=== PATIENT | male | born 1965 | race Caucasian/White ===

== ENCOUNTER 2018-11-21 15:01 | Observation (INO) ==
--- OUTSIDE RECORDS SUMMARY | 2018-11-21 15:04 | External Medical Summary | Continuity of Care Document ---
:1965 Author Name Ezequiel Romero, Provider Address Unavailable Unavailable , Care Team Providers Name Role Phone Unavailable Unavailable Unavailable PCP, UNKNOWN Unavailable Unavailable Problems Nephrolithiasis (592.0) (N20.0) Allergies and Adverse Reactions Nayeli PACE (Allergy) Medications No Reported Medications , M.D. Refills: 0 Procedures History of Lithotripsy - Whole Body (Extracorporeal Shock Wa ve) Status: Completed Immunizations Immunizations not documented Social History - Smoking Status Current every day smoker Plan of Treatment Planned Observations Planned Goals not documented Results No Known Results Results not documented
[2018-11-21] MEDS ORDERED: ASPIRIN CHEW 324 MG PO STA (15:15)
[2018-11-21] MEDS ORDERED: NITROGLYCERIN SL 0.4 MG/TAB TAB SL PRN ×2 (15:15→19:35)
--- NOTE | 2018-11-21 15:37 | XRay Report ---
SINGLE VIEW CHEST CLINICAL HISTORY: Atypical chest pain. FINDINGS: 2 AP, portable, upright chest radiographs are compared to study dated 06/29/2010. The cardio mediastinal silhouette is unremarkable. The lungs and pleural spaces are clear. No pneumothorax is se en. The bony thorax is grossly intact. IMPRESSION: No active disease in the chest. Electronically signed by: Monty Marks M.D. 11/21/2018 3:36 PM
[2018-11-21 15:46] LABS: Basophils # (auto) 0.03 K/uL (0-0.2); Basophils % (auto) 0.4 %; Eosinophils % (auto) 2.4 %; Hemoglobin 15.7 g/dL (14.0-18.0); Immature Granulocytes # (auto) 0.01 K/uL (0.00-0.02); Immature Granulocytes % (auto) 0.1 %; Lymphocytes # (auto) 3.57 K/uL (1.2-3.4); Lymphocytes % (auto) 43.2 %; Mean Corpuscular Hgb Conc 34.9 g/dL (32-36); Mean Corpuscular Volume 87.9 fL (80-100); Mean Platelet Volume 10.2 fL (7.4-10.4); Monocytes # (auto) 0.48 K/uL (0.11-0.59); Monocytes % (auto) 5.8 %; Neutrophils # (auto) 3.97 K/uL (1.4-6.5); Neutrophils % (auto) 48.1 %; Platelet Count 253 K/uL (130-400); RDW Coefficient of Variation 13.4 % (11.5-14.5); RDW Standard Deviation 43.3 fL (36.4-46.3); Red Blood Count 5.12 M/uL (4.7-6.1); White Blood Count 8.26 K/uL (4.8-10.8)
[2018-11-21 15:58] LABS: BUN Creatinine Ratio 10.5 (10-20); Blood Urea Nitrogen 8 mg/dl (7-18); Calcium 8.5 mg/dl (8.5-10.1); Carbon Dioxide 24 mmol/L (21-32); Chloride 109 mmol/L (98-107); Est GFR (Non-African American) 102.7; Glucose 102 mg/dl (70-99); Sodium 140 mmol/L (136-145)
[2018-11-21 16:00] LABS: Partial Thromboplastin Ratio 1.1; Partial Thromboplastin Time 30.8 Seconds (21.0-31.0); Prothrombin Time 10.2 Seconds (9.0-12.0)
[2018-11-21 16:02] LABS: Troponin I < 0.015 ng/ml (0-0.045)
--- NOTE | 2018-11-21 17:22 | History & Physical Report ---
Date of Service November 21, 2018 Assessment & Plan (1) Chest pain: (2) Abnormal ECG: This is a 53-year-old male who has significant past medical history of depression, tobacco abuse, HLD, hypertriglyceridemia, history of kidney stone who presents to [facility] ED secondary to chest pain that started 30 minutes prior to arrival. In ED upon arrival ECG was obtained which revealed ST and T wave depressions in leads V2 through V4 but troponin unremarkable He received 325 ASA along nitroglycerin and symptoms have subsided Remains hemodynamically stable CBC, BMP, chest x-ray unremarkable risk factors include HLD, High triglycerides, tobacco use, significant caffeine use No family hx of premature cardiac . Grandfather with CABG x 3 in 70s Sx and ecg changes concerning for underlying cardiac disease admit to telemetry cycle troponin, if elevates will place on heparin repeat ecg obtain echocardiogram consult cardiology lipid panel, A1C in a.m. ASA 81mg daily (3) Hypertriglyceridemia: Per [facility] previous Lipid panel reveals elevated Total cholesterol, triglyceride not treated medically (4) HLD (hyperlipidemia): Per [facility] previous Lipid panel reveals elevated Total cholesterol, triglyceride not treated medically (5) Tobacco abuse: NicoDerm patch requested smoking cessation encouraged (6) DVT prophylaxis: SCD/TEDS Disposition: admit to telemetry Follow up: PCP Dr. Escobedo upon discharge Patient was seen and examined in collaboration with Dr. Dahl, please see ad dendum Starting 11/22/18 patient will be followed by Dr. Person History of Present Illness Chief Complaint: Chest pain x 30 min [employer] Primary Care Provider: Francis Escobedo MD This is a 53-year-old male who has significant past medical history of depression, tobacco abuse, HLD, hypertriglyceridemia, history of kidney stone who presents to [facility] ED secondary to chest pain that started 30 minutes prior to arrival. Patient was driving when he developed substernal chest pain that felt like, "being stuck with a knife," "could not get deep breath," rated 10/10, radiating to the left side of chest with associated diaphoresis, shortness of breath and dizziness. Symptoms lasted approximately 20 minutes before easing. He has had similar symptoms in the past 1 month, approximately 3-4 times. The symptoms were similar to today but less severe. Previous episode also occurred with exertion when patient was working on remodeling a house. Symptoms resolved with rest. Denies any recent illness. Complains of ORTEGA x past month but attributed that to his smoking. Denies f/c/s, syncope, lightheaded, palpitations, sob at rest, cough, hemopytsis, cough, n/v/d, change in bowel or urinary habits. Appetite has otherwise been okay. He is a smoker. Has hx of high cholesterol but never treated medically. Drinks 6- 9cups of caffeinated beverages daily. Allergies Allergy/AdvReac Type Severity Reaction Status Date / Time minoxidil Allergy Severe Anaphylaxis Verified 11/21/18 16:14 bee venom protein (honey bee) Allergy Mild mild Unverified 11/21/18 16:45 guaifenesin Allergy Verified 11/21/18 16:14 Home Medications Home Medications Medication Instructions Recorded Confirmed Type citalopram 10 mg PO QAM 04/02/18 11/21/18 History Past Med/Surg History Medical History HLD (hyperlipidemia) Hypertriglyceridemia Tobacco abuse Kidney stones Surgical History History of colonoscopy History of lithotripsy Family History Father ESRD (end stage renal disease) Hepatitis B Grandfather (Paternal) Coronary heart disease, Onset Age: 70 CABG x 3 Social History Communication Ability: Effective Visual Impairment: No Limitations Hearing Ability: Normal marital status: Current Living Situation: Family current occupational status: employed Feels Safe at Home: Yes Smoking Status: Current every day smoker Years Smoked: 25 ; Cigarettes Per Day: 10-15 ; Hx Alcohol Use: Yes Alcohol Intake Frequency: Rarely Hx Substance Use: No Review of Systems Review of Systems: All systems reviewed & are unremarkable except as noted in HPI & below Physical Exam Physical Exam: Constitutional: WD/WN, vitals as above, NAD, sitting up in bed, pleasant, conversing easily Head: Normocephalic, Atraumatic Eyes: PERRL, conjunctivae normal, anicteric sclerae ENMT: external ear and nose normal, oropharynx normal Neck: trachea midline, no thyromegaly normal visual inspection Respiratory: normal respiratory effort, lungs clear to auscultation, no wheeze, rales, rhonchi. Normal insp/exp effort, no accessory muscle use Cardiovascular: RRR, no murmur, no edema Vessels: no JVD or carotid bruit Chest: normal inspection of chest Abdomen: normal bowel sounds, soft, nontender, no hepatosplenomegaly Musculoskeletal: no cyanosis or clubbing, extremities motor strength 5/5 Skin: no rashes, warm and dry normal turgor Neurologic: PERRL, EOMI, accommodation nl, no face palsy, no dysarthria CN's II-XI intact bilaterally and moves all extremities Psychiatric: A+Ox3, euthymic affect Lymphatic: no cervical or axillary lymphadenopathy : deferred Results & Data Vital Signs (Past 12 Hours) Vital Signs Temp Pulse Resp BP Pulse Ox 11/21/18 16:44 66 14 119/91 97 11/21/18 16:43 61 10 L 141/95 H 96 11/21/18 16:30 64 20 134/89 96 11/21/18 16:00 65 16 137/97 94 11/21/18 15:58 70 18 140/100 95 11/21/18 15:26 79 16 98 11/21/18 15:03 37.1 C 79 16 143/88 H 98 Laboratory Results Short CBC 11/21/18 Range/Units 15:25 WBC 8.26 (4.8-10.8) K/uL Hgb 15.7 (14.0-18.0) g/dL Hct 45.0 (42-52) % Plt Count 253 (130-400) K/uL BMP 11/21/18 15:25 Sodium 140 Potassium 4.0 Chloride 109 H Carbon Dioxide 24 BUN 8 Creatinine 0.80 Glucose 102 H Calcium 8.5 Cardiac Enzymes 11/21/18 Range/Units 15:25 Troponin I < 0.015 (0-0.045) ng/ml Diagnostic Findings CXR: IMPRESSION: No active disease in the chest. Medications Administered Nitroglycerin (Nitrostat) 0.4 mg SL UD PRN PRN Reason: Chest Pain Stop: 12/21/18 15:14 Last Admin: 11/21/18 16:02 Dose: 0.4 mg Documented by: [id number] Discontinued Medications Aspirin (Aspirin) 324 mg PO NOW STA Stop: 11/21/18 15:16 Last Admin: 11/21/18 16:02 Dose: 324 mg Documented by: [id number] ECG Rate (beats per minute): 70 Rhythm: normal sinus Findings: + ST depression (anterior) and + T-wave inversion (anterior) Code Status & VTE Plan Code Status Full Code VTE Prophylaxis Plan VTE Prophylaxis will be ordered: Yes Supervising Physician Co-Signing Physician Notes I, Dr. 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 Patient evaluated in the ED so far and no current chest pain. His initial troponin is negative but patient does have ABNORMAL EKG as the appears to be T wave changes in anterior leads of V3 and V4 compared to EKG results in 2000. Patient denies of a diagnosed cardiac history in the past. Has been breathing on room air in the emergency room. No abdominal pain. No vomiting. No problems with bowel movements and urination. While in the emergency room, no headache, no dizziness, no lightheadedness. main plans to evaluate chest pain is to trend troponins, monitor on telemetry, and obtain echocardiogram. also check HbA1c and lipid panel. If any significant changes in diagnostic findings or changes in clinical status then may need cardiology evaluation. Patient's [phone] Person will be follow the patient starting on 11/22/18 (1) Chest pain Chest pain type: unspecified Qualified Code(s): R07.9 - Chest pain, unspecified
--- NOTE | 2018-11-21 18:31 | Emergency Department Note ---
Entered by Daphney Aldrich acting as a scribe for Chandler Ayala History of Present Illness General Chief complaint: Cardiac Assessment Stated complaint: CHEST PAIN, SOB, SWEATING Time Seen by Provider: 11/21/18 15:09 Source: patient and family Mode of arrival: ambulatory Limitations: no limitations History of Present Illness Onset (ago): minute(s) 30 Location: chest Radiation: non-radiation Pain Consistency: + now resolved Maximum Pain Intensity: 0 Current Pain Intensity: 10 Quality: + sharp Relieved By: + none Exacerbated By: + none Associated symptoms: + shortness of breath Treatments prior to arrival: none The patient is a 53 year old male who presents to the ED with complaints of chest pain. He states he was driving about 30 minutes [employer] when he experienced sharp chest pain and shortness of breath. He rates his pain as a 10/10 in severity but notes it has resolved and he rates it as a 1/10 currently in the ED. He denies any recent long trips or travel. He denies any recent cough. His notes he slid down a ladder last week and has not felt "normal" since then. He did not hit his head or lose consciousness after the fall. His grandfather did have a heart attack in his early 70's. Home Medications Home Medications Medication Instructions Recorded Confirmed Type citalopram 10 mg PO QAM 04/02/18 11/21/18 History Allergies Allergy/AdvReac Type Severity Reaction Status Date / Time minoxidil Allergy Severe Anaphylaxis Verified 11/21/18 16:14 bee venom protein (honey bee) Allergy Mild mild Unverified 11/21/18 16:45 guaifenesin Allergy Verified 11/21/18 16:14 Past Med/Surg History Medical History HLD (hyperlipidemia) Hypertriglyceridemia Tobacco abuse Kidney stones Surgical History History of colonoscopy History of lithotripsy Family History Father ESRD (end stage renal disease) Hepatitis B Grandfather (Paternal) Coronary heart disease, Onset Age: 70 CABG x 3 Social History Communication Ability: Effective Visual Impairment: No Limitations Hearing Ability: Normal marital status: Current Living Situation: Family current occupational status: employed Feels Safe at Home: Yes Smoking Status: Current every day smoker Years Smoked: 25 ; Cigarettes Per Day: 10-15 ; Hx Alcohol Use: Yes Alcohol Intake Frequency: Rarely Hx Substance Use: No Review of Systems See HPI for pertinent positives & negatives. and A total of 10 systems reviewed and were otherwise negative Physical Exam Vital Signs Vital Signs - 24 hr 11/21/18 15:03 11/21/18 15:26 11/21/18 15:58 Temperature 37.1 C Temperature Source Oral Sepsis Recent Fever Within 48 Hours No Sepsis New/Unexplained Change in Mental Status No Sepsis Action Taken by Nursing No Action Required Pulse Rate 79 79 70 Pulse Rate from SpO2 Sensor 68 Pulse Rhythm Regular Respiratory Rate 16 16 18 Blood Pressure 143/88 H 140/100 Blood Pressure Mean 106 113 Pulse Oximetry 98 98 95 Oxygen Delivery Method Room Air Room Air Room Air 11/21/18 16:00 11/21/18 16:30 11/21/18 16:43 Temperature Temperature Source Sepsis Recent Fever Within 48 Hours Sepsis New/Unexplained Change in Mental Status Sepsis Action Taken by Nursing Pulse Rate 65 64 61 Pulse Rate from SpO2 Sensor 64 58 L Pulse Rhythm Respiratory Rate 16 20 10 L Blood Pressure 137/97 134/89 141/95 H Blood Pressure Mean 110 104 110 Pulse Oximetry 94 96 96 Oxygen Delivery Method Room Air Room Air Room Air 11/21/18 16:44 Temperature Temperature Source Sepsis Recent Fever Within 48 Hours Sepsis New/Unexplained Change in Mental Status Sepsis Action Taken by Nursing Pulse Rate 66 Pulse Rate from SpO2 Sensor 62 Pulse Rhythm Respiratory Rate 14 Blood Pressure 119/91 Blood Pressure Mean 100 Pulse Oximetry 97 Oxygen Delivery Method Room Air GENERAL: He is oriented to person, place, and time. He appears well-developed and well-nourished. He does not appear distressed. HENT: Exam performed. - Head: Normocephalic and atraumatic. - Right Ear: External ear normal. No mastoid tenderness. - Left Ear: External ear normal. No mastoid tenderness. - Mouth/Throat: The oropharynx is clear and moist. No trismus in the jaw. No dental abscesses or uvula swelling. No oropharyngeal exudate or tonsillar abscesses. EYES: Conjunctivae and EOM are normal. Pupils are equal, round, and reactive to light. Right eye exhibits no discharge. Left eye exhibits no discharge. No scleral icterus. NECK: Normal range of motion. Neck supple. No JVD present. No spinous process tenderness present. No carotid bruit present. No rigidity. No tracheal deviation and normal range of motion present. No Brudzinski's sign and no Kernig's sign noted. CV: Normal rate, regular rhythm, normal heart sounds and intact distal pulses. There is no peripheral edema. Palpable radial pulses bue. PULM/CHEST: Effort normal and breath sounds normal. No respiratory distress. No stridor. He has no wheezes. He has no rales. - Chest Wall: He exhibits no tenderness. ABD: The abdomen is soft. Bowel sounds are normal. He has no distension. No mass is present. There is no tenderness. There is no rebound, no guarding, no Stewart's sign and no tenderness at McBurney's point. Rovsig negative. MUSC/SKEL: Normal range of motion. There is no peripheral edema, tenderness or deformity. LYMPH: No cervical adenopathy. NEURO: He is alert and oriented to person, place, and time. He has normal strength. No cranial nerve deficit or sensory deficit. Coordination and gait normal. GCS eye subscore is 4. GCS verbal subscore is 5. GCS motor subscore is 6. Cerebellar tests wnl. SKIN: Skin is warm and dry. He is not diaphoretic. PSYCH: He has a normal mood and affect. Behavior is normal. Judgment and thought content normal. Course 1510: The patient was evaluated in room B2 and a complete history and physical were performed. 1610: Vital signs stable. Labs and imaging within normal limits. EKG does show TWI. Given his age, tobacco use history and history of hyperlipidemia, he will be a chest pain/ACS rule out. Patient is in agreement with this plan. I discussed the patients case with Jeannie Camarena. The patient will be further evaluated. Consultations Consultation #1: I discussed the patients case with Jeannie Camarena. The patient will be further evaluated. Time: 16:11 Administered Medications Nitroglycerin (Nitrostat) 0.4 mg SL UD PRN PRN Reason: Chest Pain Stop: 12/21/18 15:14 Last Admin: 11/21/18 16:02 Dose: 0.4 mg Documented by: [id number] Discontinued Medications Aspirin (Aspirin) 324 mg PO NOW STA Stop: 11/21/18 15:16 Last Admin: 11/21/18 16:02 Dose: 324 mg Documented by: [id number] Medical Decision Making Medical Records Attestation: I reviewed the patient's medical records. Home Medications Current Medication List: was personally reviewed by me Laboratory Data Attestation: I reviewed the patient's lab results. Result diagrams: 11/21/18 15:25 11/21/18 15:25 Lab Results 11/21/18 11/21/18 11/21/18 Range/Units 15:25 15:25 15:25 WBC 8.26 (4.8-10.8) K/uL RBC 5.12 (4.7-6.1) M/uL Hgb 15.7 (14.0-18.0) g/dL Hct 45.0 (42-52) % MCV 87.9 (80-100) fL MCH 30.7 (25-34) pg MCHC 34.9 (32-36) g/dL RDW Std Deviation 43.3 (36.4-46.3) fL RDW Coeff of Anais 13.4 (11.5-14.5) % Plt Count 253 (130-400) K/uL MPV 10.2 (7.4-10.4) fL Immature Gran % (Auto) 0.1 % Neut % (Auto) 48.1 % Lymph % (Auto) 43.2 % White % (Auto) 5.8 % Eos % (Auto) 2.4 % Baso % (Auto) 0.4 % Immature Gran # (Auto) 0.01 (0.00-0.02) K/uL Neut # (Auto) 3.97 (1.4-6.5) K/uL Lymph # (Auto) 3.57 H (1.2-3.4) K/uL White # (Auto) 0.48 (0.11-0.59) K/uL Eos # (Auto) 0.20 (0-0.5) K/uL Baso # (Auto) 0.03 (0-0.2) K/uL PT 10.2 (9.0-12.0) Seconds INR 1.0 (0.9-1.1) APTT 30.8 (21.0-31.0) Seconds PTT Ratio 1.1 Sodium 140 (136-145) mmol/L Potassium 4.0 (3.5-5.1) mmol/L Chloride 109 H (98-107) mmol/L Carbon Dioxide 24 (21-32) mmol/L Anion Gap 7.0 (3-11) BUN 8 (7-18) mg/dl Creatinine 0.80 (0.6-1.4) mg/dl Est Cr Clr Drug Dosing 110.0 ml/min Est GFR ( Amer) 119.0 Est GFR (Non-Af Amer) 102.7 BUN/Creatinine Ratio 10.5 (10-20) Glucose 102 H (70-99) mg/dl Calcium 8.5 (8.5-10.1) mg/dl POC Troponin I (0-0.045) ng/ml Troponin I < 0.015 (0-0.045) ng/ml Lipase 183 (73-393) U/L 11/21/18 Range/Units 15:34 WBC (4.8-10.8) K/uL RBC (4.7-6.1) M/uL Hgb (14.0-18.0) g/dL Hct (42-52) % MCV (80-100) fL MCH (25-34) pg MCHC (32-36) g/dL RDW Std Deviation (36.4-46.3) fL RDW Coeff of Anais (11.5-14.5) % Plt Count (130-400) K/uL MPV (7.4-10.4) fL Immature Gran % (Auto) % Neut % (Auto) % Lymph % (Auto) % White % (Auto) % Eos % (Auto) % Baso % (Auto) % Immature Gran # (Auto) (0.00-0.02) K/uL Neut # (Auto) (1.4-6.5) K/uL Lymph # (Auto) (1.2-3.4) K/uL White # (Auto) (0.11-0.59) K/uL Eos # (Auto) (0-0.5) K/uL Baso # (Auto) (0-0.2) K/uL PT (9.0-12.0) Seconds INR (0.9-1.1) APTT (21.0-31.0) Seconds PTT Ratio Sodium (136-145) mmol/L Potassium (3.5-5.1) mmol/L Chloride (98-107) mmol/L Carbon Dioxide (21-32) mmol/L Anion Gap (3-11) BUN (7-18) mg/dl Creatinine (0.6-1.4) mg/dl Est Cr Clr Drug Dosing ml/min Est GFR ( Amer) Est GFR (Non-Af Amer) BUN/Creatinine Ratio (10-20) Glucose (70-99) mg/dl Calcium (8.5-10.1) mg/dl POC Troponin I < 0.03 (0-0.045) ng/ml Troponin I (0-0.045) ng/ml Lipase (73-393) U/L Imaging Data Radiologist's Impression: Radiology results as stated below per my review and the radiologist's interpretation: SINGLE VIEW CHEST CLINICAL HISTORY: Atypical chest pain. FINDINGS: 2 AP, portable, upright chest radiographs are compared to study dated 06/29/2010. The cardiomediastinal silhouette is unremarkable. The lungs and pleural spaces are clear. No pneumothorax is seen. The bony thorax is grossly intact. IMPRESSION: No active disease in the chest. Electronically signed by: Monty Marks M.D. 11/21/2018 3:36 PM ECG Data Attestation: I personally reviewed and interpreted this ECG as follows: Indication: chest pain Rate (beats per minute): 70 Rhythm: sinus rhythm Findings: + other (MT, QRS and QTC within normal limits) and + T-wave inversion (in V3 and V4); no ST depression and no ST elevation Additional Comments: 2nd EKG on 11/21/18: Sinus rhythm, rate of 70, MT, QRS and QTC within normal limits, no ST elevations, no ST depressions, T-wave inversions in V3 and V4. Blood Pressure Blood Pressure Findings: Elevated blood pressure Blood Pressure Disposition: further management by hospitalist [facility] Narrative Vital signs stable. Labs and imaging within normal limits. EKG does show TWI. Given his age, tobacco use history and history of hyperlipidemia, he will be a chest pain/ACS rule out. Patient is in agreement with this plan. I discussed the patients case with Dr. Dahl, [facility] Hospitalist. The patient will be further evaluated. Impression & Plan Chest pain Discharge Plan Visit Data Chief Complaint: Cardiac Assessment Stated Complaint: CHEST PAIN, SOB, SWEATING ED Provider: Chandler Ayala Discharge Problem: Chest pain Patient Disposition: Being Evaluated by Hospitalist Forms Stand Alone Forms: My [facility] Prescriptions Prescriptions: No Action citalopram 10 mg tablet 10 mg PO QAM RF: 0 Referrals Referrals: Francis Escobedo MD [Primary Care Provider] - Discharge Problem: Chest pain Qualifiers: Chest pain type: unspecified Qualified Code(s): R07.9 - Chest pain, unspecified The scribe's documentation has been prepared under my direction and personally reviewed by me in its entirety. I confirm that the note above accurately reflects all work, treatment, procedures, and medical decision making performed by me.
[2018-11-21] MEDS ORDERED: ONDANSETRON INJ 2 MG/ML 2 ML VIAL IV PRN (19:35)
[2018-11-21] MEDS ORDERED: ACETAMINOPHEN 325 MG TAB PO PRN (19:35)
[2018-11-21] MEDS ORDERED: POLYETHYLENE (MIRALAX) 17 GM PACK PO PRN (19:35)
[2018-11-21] MEDS: NICOTINE 21 MG/24 HR TDSY TD SCH (21:04)
[2018-11-22 03:30] LABS: Hematocrit (blood only) 44.4 % (42-52); Hemoglobin 15.6 g/dL (14.0-18.0); Mean Corpuscular Hgb Conc 35.1 g/dL (32-36); Mean Corpuscular Volume 88.3 fL (80-100); Mean Platelet Volume 10.2 fL (7.4-10.4); Platelet Count 240 K/uL (130-400); RDW Coefficient of Variation 13.6 % (11.5-14.5); RDW Standard Deviation 44.1 fL (36.4-46.3); Red Blood Count 5.03 M/uL (4.7-6.1); White Blood Count 9.03 K/uL (4.8-10.8)
[2018-11-22 03:48] LABS: Alanine Aminotransferase 20 U/L (12-78); Albumin Level 3.3 gm/dl (3.4-5.0); Aspartate Aminotransferase 13 U/L (15-37); BUN Creatinine Ratio 14.2 (10-20); Blood Urea Nitrogen 10 mg/dl (7-18); Calcium 8.1 mg/dl (8.5-10.1); Carbon Dioxide 25 mmol/L (21-32); Chloride 111 mmol/L (98-107); Creatinine Clr Calc Pharmacy 122.7 ml/min; Est GFR (African American) 125.8; Est GFR (Non-African American) 108.5; Glucose 93 mg/dl (70-99); Potassium 3.9 mmol/L (3.5-5.1); Sodium 141 mmol/L (136-145)
[2018-11-22 03:53] LABS: Albumin Globulin Ratio 1.1 (0.9-2); Alkaline Phosphatase 52 U/L (45-117); Bilirubin,Total 0.2 mg/dl (0.2-1); Chol HDL Ratio 6; Cholesterol 188 mg/dl (0-200); Globulin 2.9 gm/dl (2.5-4.0); HDL Cholesterol 30 mg/dl; LDL Cholesterol Calculated 115 mg/dl; Total Protein 6.2 gm/dl (6.4-8.2); Triglycerides 214 mg/dl (0-150); Troponin I < 0.015 ng/ml (0-0.045); VLDL Cholesterol 43 mg/dl
[2018-11-22 06:18] LABS: Estimated Average Glucose 117 mg/dl; Hemoglobin A1C 5.7 % (4.5-5.6)
[2018-11-22] MEDS: NICOTINE 21 MG/24 HR TDSY TD SCH (08:02)
[2018-11-22] MEDS ORDERED: CITALOPRAM 20 MG TAB PO SCH (09:00)
[2018-11-22] MEDS ORDERED: ASPIRIN 81 MG ECTAB PO SCH (09:00)
--- NOTE | 2018-11-22 14:34 | Hospitalist Progress Note ---
Date of Service November 22, 2018 Assessment & Plan (1) Chest pain: (2) Abnormal ECG: Present on admission with chest pain ECG on admission showed revealed ST and T wave depressions in leads V2 through V4 Troponin x 3 negative Received 325 ASA along nitroglycerin on admission Cardiology on board Had stress test done this morning that was negative ECHO showed showed no wall motion abnormality and EF btw 55-60 % Clinically stable (3) Hypertriglyceridemia: (4) HLD (hyperlipidemia): Follow up a low cholesterol diet Check Lipid panel in 3 to 6 months (5) Tobacco abuse: NicoDerm patch requested smoking cessation encouraged (6) DVT prophylaxis: SCD/TEDS Disposition Discharge home today Subjective Pt was seen and examined Lying in bed with no distress with no distress Pt said that he feels fine He had stress test done today and did well Denies any chest pain, palpitation, dizziness and SOB Physical Exam Physical Exam: General- No acute distress Head- atraumatic Eyes- PERRL, EOMI, ENT- oropharynx clear Neck- supple, no JVD Lungs- clear to auscultation Heart- regular rhythm; no murmur Abdomen- normal bowel sounds, soft, nontender Extremities- no calf tenderness Neuro- alert, oriented x 3; PERRL, EOMI; no facial palsy; no dysarthria Skin- warm & dry Results & Data Vital Signs (Past 12 Hours) Vital Signs Temp Pulse Resp BP Pulse Ox 11/22/18 11:25 36.8 C 67 16 125/88 97 11/22/18 07:19 36.6 C 73 19 124/80 96 11/22/18 03:17 36.7 C 72 18 120/80 95 (1) Chest pain Chest pain type: unspecified Qualified Code(s): R07.9 - Chest pain, unspec ified
--- NOTE | 2018-11-22 14:49 | Consultation Report ---
DATE OF CONSULTATION: 11/22/2018 CONSULTATION REQUESTED BY: Minnie Padgett PA-C. REASON FOR CONSULTATION: Chest pain with an abnormal EKG. HISTORY OF PRESENT ILLNESS: The patient is a very pleasant 53-year-old gentleman, who presented to [facility] on 11/21/2018 with complaints of sudden onset of chest pain. The patient states he was in his normal state of health yesterday and simply driving his truck when suddenly he developed severe chest pain. He describes a sharp, stabbing sensation at the base of his mediastinum that seem to have shoot through to his back like a knife. It was very difficult to take a deep breath at that time. He started feeling shortness of breath. He pulled over and after about 10 minutes, the symptoms slowly subsided. He became concerned; however, came into the Emergency Department. In the ER, he was given aspirin and nitro without any significant relief; however, he states that the pain gradually subsided by the time he was admitted to telemetry. Overnight, no further episodes of chest discomfort occurred. He states that he has had similar episodes in the past; however, nowhere near as severe and this is the first time he sought medical treatment for one of them. PAST SURGICAL HISTORY: 1. Colonoscopy. 2. Dental surgery. MEDICAL ILLNESSES: 1. Anxiety. 2. Tobacco abuse. FAMILY HISTORY: Denies any premature coronary artery disease or sudden cardiac . SOCIAL HISTORY: The patient is a lifelong smoker and smokes about a pack a day. Drinks occasional alcohol. Denies any recreational drug use. He is currently employed as a contractor. He is very active at his job and does a significant amount of manual labor. REVIEW OF SYSTEMS: As per HPI, all other review of systems reviewed and negative at this time. ALLERGIES: 1. BEE VENOM. 2. MINOXIDIL. 3. GUAIFENESIN. MEDICATIONS AN OUTPATIENT: Celexa. PHYSICAL EXAMINATION: VITALS: Temperature 36.8, pulse 67, respiratory rate 12, blood pressure 125/88. GENERAL: Awake, alert, oriented x3, in no acute distress. HEENT: Normocephalic, atraumatic. Pupils equal, round, reactive to light and accommodation. Extraocular muscles intact. Anicteric sclerae. Moist mucous membranes. NECK: No JVD, no bruit. CARDIOVASCULAR: Regular. Positive S4. Normal S1 and S2. No S3. No murmurs or rubs. PULMONARY: Clear to auscultation bilaterally. No rales, rhonchi or wheezing. ABDOMEN: Bowel sounds x4, soft. No rebound, guarding, tenderness. No organomegaly. EXTREMITIES: No clubbing, cyanosis or edema. +2 pedal pulses bilaterally. SKIN: Warm and dry. TEST RESULTS: A 12-lead EKG performed in the Emergency Department independently reviewed at this time shows normal sinus rhythm at 70 beats per minute, normal axis, normal intervals, inverted T waves in the anterior leads, new compared to previous study. LABORATORY STUDIES OF SIGNIFICANCE: Troponin negative x3. Resting echocardiogram showed normal LV chamber size with moderate concentric LVH, normal LV systolic function, EF 55%-60%, no segmental left ventricular wall motion abnormalities are noted, grade 2 diastolic dysfunction, no significant valvular pathology. Exercise stress echocardiogram was nonischemic, no arrhythmias, normal BP and heart rate response to exercise, average exercise tolerance. Chest pain was not reproduced at peak exercise. IMPRESSION: 1. Chest pain, nonischemic in nature. 2. Tobacco abuse. RECOMMENDATIONS: It was my pleasure to see the patient in consultation today. From a cardiac standpoint, given the fact that his chest pain was not reproduced with his stress test at peak exercise, I do not see any cardiac component to his chest pain and believe it is most likely musculoskeletal in nature, so no further cardiac testing or intervention is necessary at this time. No cardiac followup is necessary. I have recommended the patient follow up with his primary care physician for further evaluation of the chest discomfort. I have also given him chest stretching exercises to do today as well. It is okay to discharge the patient to home from a cardiac standpoint. MYRON
--- NOTE | 2018-11-24 09:25 | Discharge Summary ---
Date of Service November 22, 2018 Admission HPI Per Admitting Provider This is a 53-year-old male who has significant past medical history of depression, tobacco abuse, HLD, hypertriglyceridemia, history of kidney stone who presents to [facility] ED secondary to chest pain that started 30 minutes prior to arrival. Patient was driving when he developed substernal chest pain that felt like, "being stuck with a knife," "could not get deep breath," rated 10/10, radiating to the left side of chest with associated diaphoresis, shortness of breath and dizziness. Symptoms lasted approximately 20 minutes before easing. He has had similar symptoms in the past 1 month, approximately 3-4 times. The symptoms were similar to today but less severe. Previous episode also occurred with exertion when patient was working on remodeling a house. Symptoms resolved with rest. Denies any recent illness. Complains of ORTEGA x past month but attributed that to his smoking. Denies f/c/s, syncope, lightheaded, palpitations, sob at rest, cough, hemopytsis, cough, n/v/d, change in bowel or urinary habits. Appetite has otherwise been okay. He is a smoker. Has hx of high cholesterol but never treated medically. Drinks 6- 9cups of caffeinated beverages daily. Admission Exam Per Admitting Provider Constitutional: WD/WN, vitals as above, NAD, sitting up in bed, pleasant, conversing easily Head: Normocephalic, Atraumatic Eyes: PERRL, conjunctivae normal, anicteric sclerae ENMT: external ear and nose normal, oropharynx normal Neck: trachea midline, no thyromegaly normal visual inspection Respiratory: normal respiratory effort, lungs clear to auscultation, no wheeze, rales, rhonchi. Normal insp/exp effort, no accessory muscle use Cardiovascular: RRR, no murmur, no edema Vessels: no JVD or carotid bruit Chest: normal inspection of chest Abdomen: normal bowel sounds, soft, nontender, no hepatosplenomegaly Musculoskeletal: no cyanosis or clubbing, extremities motor strength 5/5 Skin: no rashes, warm and dry normal turgor Neurologic: PERRL, EOMI, accommodation nl, no face palsy, no dysarthria CN's II-XI intact bilaterally and moves all extremities Psychiatric: A+Ox3, euthymic affect Lymphatic: no cervical or axillary lymphadenopathy : deferred Principal Diagnosis Chest Pain Tobacco abuse Dyslipidemia Discharge Exam General- No acute distress Head- atraumatic Eyes- PERRL, EOMI, ENT- oropharynx clear Neck- supple, no JVD Lungs- clear to auscultation Heart- regular rhythm; no murmur Abdomen- normal bowel sounds, soft, nontender Extremities- no calf tenderness Neuro- alert, oriented x 3; PERRL, EOMI; no facial palsy; no dysarthria Skin- warm & dry Discharge Data Allergies Allergy/AdvReac Type Severity Reaction Status Date / Time minoxidil Allergy Severe Anaphylaxis Verified 11/21/18 16:14 bee venom protein (honey bee) Allergy Mild mild Unverified 11/21/18 16:45 guaifenesin Allergy Verified 11/21/18 16:14 Consultations 11/21/18 16:12 ED Decision to Admit Stat 11/21/18 19:35 Consult Cardiology Routine Ordered Studies SINGLE VIEW CHEST CLINICAL HISTORY: Atypical chest pain. FINDINGS: 2 AP, portable, upright chest radiographs are compared to study dated 06/29/2010. The cardiomediastinal silhouette is unremarkable. The lungs and pleural spaces are clear. No pneumothorax is seen. The bony thorax is grossly intact. IMPRESSION: No active disease in the chest. Electronically signed by: Monty Marks M.D. 11/21/2018 3:36 PM Dictated: 11/21/18 1535 Transcribed: 11/21/18 1535 Hospital Course (1) Chest pain: (2) Abnormal ECG: Present on admission with chest pain ECG on admission showed revealed ST and T wave depressions in leads V2 through V4 Troponin x 3 negative Received 325 ASA along nitroglycerin on admission Cardiology on board Had stress test done this morning that was negative ECHO showed showed no wall motion abnormality and EF btw 55-60 % Clinically stable (3) Hypertriglyceridemia: Per [facility] previous Lipid panel reveals elevated Total cholesterol, triglyceride not treated medically (4) HLD (hyperlipidemia): Follow up a low cholesterol diet Check Lipid panel in 3 to 6 months (5) Tobacco abuse: NicoDerm patch requested smoking cessation encouraged (6) DVT prophylaxis: SCD/TEDS Disposition Discharge home today Total Time Total Time Spent Total Time Spent (In Minutes): 35 minutes Total Time Includes: Examination of the Patient, Discharge Planning, Medication Reconciliation, Communication With Other Providers and Other Discharge Plan Discharge Items Patient Disposition: Home - Self-Care Reason For Visit: CHEST PAIN Discharge Diagnosis: Chest pain Activity: Resume your previous activity Activity Comment: As tolerated Non-emergency contact: Primary Care Provider Call non-emergency contact if: you have any medication questions Follow-up/Referrals: Francis Escobedo MD [Primary Care Provider] - Diet: Heart Healthy Addtl Attending Provider Instructions: Follow up with your primary care provider Dr. Escobedo on 11/29 @ 9:45 AM Counseling on smoking cessation Follow a low cholesterol diet Pending Studies at Discharge: No Stand-Alone Forms: My [facility] 8Trip Medications and DC Order Prescriptions: New aspirin 81 mg tablet,chewable 81 mg PO DAILY Qty: 30 RF: 0 Continued citalopram 10 mg tablet 10 mg PO QAM RF: 0 Discharge Orders: Discharge Order (Routine); Ordered 11/22/18 Ordered By: Juloi Person Admission Data Admit Date/Time: 11/21/18 16:55 Attending Provider: Julio Person Admit Provider: Pedro Dahl Primary Care Provider: Francis Escobedo Other Providers: Pedro Dahl ; Thom Jeff Other Interventions: Discharge Summary Assessment (RN) Last Done: 11/22/18 15:17 DC Date/Time DO NOT enter until pt leaves facility: 11/22/18 15:39
== END 2018-11-22 15:39 | disposition home or self-care (01) ==
LOC: ED 15:01 → 2S 15:01